=== PATIENT | female | born 1985 ===

== ENCOUNTER 2022-02-09 23:49 | Emergency (ER) | payer SELFPAY ==
[2022-02-10] MEDS ORDERED: Ketorolac Tromethamine 30 MG/ML VIAL ONE (00:28)
[2022-02-10] MEDS ORDERED: Lidocaine 1% w/Epinephrine 1:100K 20 ML VIAL ONE (00:28)
[2022-02-10] MEDS ORDERED: Boostrix 0.5 ML (Tdap) VIAL ONE (00:28)
[2022-02-10] MEDS ORDERED: Ondansetron PF 4 MG/2 ML Vial ONE (00:28)
[2022-02-10] MEDS ORDERED: Bacitracin 1 PK ONE (01:35)
== END 2022-02-10 01:58 | disposition home or self-care (01) ==
LOC: ERS 23:49
DX: S91.311A Laceration without foreign body, right foot, initial encounter (principal); Z23 Encounter for immunization; W52.XXXA Crushed, pushed or stepped on by crowd or human stampede, initial encounter
CPT/HCPCS: 12002; 90471; 90715; 96374; 96375; J1885; J2405